=== PATIENT | female | born 1980 | race African-American/Black ===

== ENCOUNTER 2018-07-31 06:02 | Inpatient (IN) | payer OTHER ==
[~2018-07-31] VITALS: Ht 160 cm; Wt 75.3 kg
[2018-07-31 06:05] VITALS: BP 141/82
[2018-07-31 06:48] LABS: ANION GAP 22 mmol/L (7-16); BUN 11 mg/dL (7-18); CALCIUM 8.9 mg/dL (8.5-10.1); CHLORIDE 93 mmol/L (98-107); CO2 17 mmol/L (21-32); GLUCOSE 67 mg/dL (74-106); POTASSIUM 4.1 mmol/L (3.5-5.1); SODIUM 132 mmol/L (136-145)
[2018-07-31 06:57] LABS: ALBUMIN 3.9 g/dL (3.4-5.0); DIRECT BILIRUBIN 0.3 mg/dL (<0.1-0.3); LIPASE 35 U/L (73-393); SGOT 161 U/L (15-37); SGPT 134 U/L (30-65); TOTAL PROTEIN 7.6 g/dL (6.4-8.2); TROPONIN-I <0.06 ng/mL (<0.06)
[2018-07-31 07:11] LABS: URINE CLARITY CLEAR; URINE COLOR YELLOW; URINE SPECIFIC GRAVITY 1.025 (1.005-1.035)
[2018-07-31 07:12] LABS: URINE BLOOD 1+ (Negative); URINE GLUCOSE-RANDOM* NEGATIVE (Negative); URINE KETONES 3+ (Negative); URINE LEUKOCYTES-REFLEX NEGATIVE (Negative); URINE NITRITE-REFLEX NEGATIVE (Negative); URINE PROTEIN (DIPSTICK) 1+ (Negative); URINE UROBILINOGEN 0.2 E.U./dl (0.2-1.0)
[2018-07-31 07:14] LABS: ICTOTEST (BILI CONFIRMATORY) Negative (Negative); URINE BILIRUBIN NEGATIVE (Negative)
[2018-07-31 07:17] LABS: AMP/METHAMP Negative (Negative); BARBITURATES Negative (Negative); BENZODIAZEPINES Negative (Negative); COCAINE Negative (Negative); METHADONE Negative (Negative); OPIATES Negative (Negative); PCP Negative (Negative)
[2018-07-31 07:20] LABS: URINE REDUCING SUBSTANCE NEGATIVE
[2018-07-31 07:37] LABS: HEMATOCRIT 35.9 % (37.0-47.0); HEMOGLOBIN 12.4 gm/dL (12.0-15.0); MCH 30.2 pg (26.0-34.0); MCHC 34.7 g/dL (28.0-37.0); MCV 87.1 fL (80.0-100.0); PLATELET COUNT 111 thou/uL (150-400); RBC 4.12 mil/uL (4.20-5.00); RDW 14.1 % (10.5-14.5); WBC 4.4 thou/uL (4.0-11.0)
[2018-07-31 07:40] LABS: SQUAMOUS 4-10 Moderate /LPF (0-3)
[2018-07-31 07:41] LABS: CASTS None Seen /LPF (None Seen); CRYSTALS None Seen /LPF (None Seen); URINE RBC 0-2 Rare /HPF (0-2); URINE WBC-REFLEX 0-5 Rare /HPF (0-5)
[2018-07-31 07:42] LABS: BACTERIA-REFLEX 1-9 Few /HPF (None Seen)
[2018-07-31 08:21] LABS: ATYPICAL LYMPHS 4 %
--- NOTE | 2018-07-31 08:53 | EKG ---
[address] [place] [address] ELECTROCARDIOGRAM REPORT Name: ENIO DENT Room #: 170-1 ADM IN M.R.#: [id number] Admission: 07/31/18 Attend Phys: Matthew Bhatt MD Discharge: Date of : 82 Report #: [id number] THIS REPORT FOR: //name// [facility] ED Test Date: 2018-07-31 Test Time: 06:39:38 Pat Name: ENIO DENT Department: Room: 170 Gender: F Orthopedic Technician: LANI SHIELDS : 1980 Requested By: Froylan Dorsey Order Number: [id number] MD: Johan Paulino Measurements Intervals [place] Rate: 87 P: 58 [place]: 139 QRS: 23 QRSD: 101 T: 27 QT: 424 QTc: 510 Interpretive Statements Sinus rhythm ST elev, probable normal early repol pattern Prolonged QT interval No previous ECG available for comparison Electronically Signed On 07-31-2018 8:52:56 CLOTH SHRINKING TESTER by Johan Paulino [email or web address] <ELECTRONICALLY SIGNED> By: Johan Paulino MD, [facility] 07/31/18 0852 0639 8 Johan Paulino MD, FACC /EPI
[2018-07-31 13:32] VITALS: BP 127/78
[2018-07-31 14:25] VITALS: BP 128/75
[2018-07-31 14:45] VITALS: BP 128/83
[2018-07-31 19:33] VITALS: BP 123/73
[2018-08-01 00:04] VITALS: BP 108/73
[2018-08-01 03:34] VITALS: BP 112/69
--- NOTE | 2018-08-01 03:53 | NUR ---
ASSUMED PT CARE AROUND 1900. ORIENTED X4. PT ANXIOUS AND C/O SOA EARLIER IN THE SHIFT. LORAZEPAM GIVEN PER [facility] PROTOCOL. PT STATED SYMPTOMS IMPROVED. PT HAS BEEN SLEEPING MOST OF THE NIGHT. RESP EVEN AND UNLABORED. DENIES ANY HALLUCINATIONS. C/O HEADACHE AND NAUSEA. PT WAS ABLE TO TOLERATE EATING A SNACK. IVF INFUSING ORDERED. FALL PRECAUTIONS IN PLACE. PROGRESSING SLOWLY TOWARD POC GOALS. WILL CONTINUE TO MONITOR FURTHER.
[2018-08-01 04:21] LABS: CALCIUM 8.4 mg/dL (8.5-10.1); MAGNESIUM 1.3 mg/dL (1.8-2.4); POTASSIUM 4.5 mmol/L (3.5-5.1)
[2018-08-01 07:45] VITALS: BP 130/91
[2018-08-01 11:59] VITALS: BP 135/85
[2018-08-01] MEDS ORDERED: TRAZODONE 150150 M1 PO (12:20)
[2018-08-01] MEDS ORDERED: QUETIAPINE FUM100 MG PO (12:20)
--- NOTE | 2018-08-01 14:44 | NUR ---
dp sent updates to [facility], patient to dc in 1 to 2 days. dp made sure to include a face sheet in case they misplaced the last one.
--- NOTE | 2018-08-01 15:17 | NUR ---
Assumed care of patient at 0700. Vitals have been stable. Patient alert and oriented x4. CIWAs every 4 hours and treated with PO Ativan as needed. Main complaints are feeling anxious, shaky, with mild nausea and headache. States that Ativan helps these symptoms. Patient up with SBA to bathroom. Fall precautions in place and calls appropriately. IVF infusing per orders, onetime dose of Magnesium IV x2. Psych consult due to ETOH and depression. Progressing towards POC. Will continue to monitor.
[2018-08-01 16:11] VITALS: BP 105/62
[2018-08-01 19:10] VITALS: BP 114/74
[2018-08-02 03:00] VITALS: BP 119/84
[2018-08-02 07:26] VITALS: BP 120/86
--- NOTE | 2018-08-02 07:37 | NUR ---
PATIENT IS PROGRESSING IN HER CARE PLAN. VITAL SIGNS STABLE WITH PATIENT HAVING NO COMPLAINTS OF PAIN. PATIENT DID COMPLAIN OF VERY SLIGHT NAUSEA WHICH WAS TREATED EFFECTIVELY. ORIENTED THROUGHOUT SHIFT, PATIENT WAS ABLE TO CALL APPROPRIATELY FOR NEEDS. CIWA ASSESSMENT WITH MEDICATION GIVEN THROUGHOUT SHIFT WITH PATIENT SCORING HIGH FIVE. UP MULTIPLE TIMES TO BATHROOM WITH STANDBY ASSISTANCE INCIDENT FREE. CONTINUE PLAN OF CARE.
--- NOTE | 2018-08-02 10:09 | NUR ---
ASSESSMENT: CM REVIEWED CHART AND MET WITH PATIENT AT THE BEDSIDE. PT IS ALERT AND ORIENTED X4. PT WAS ADMITTED WITH ETOH KETOACIDOSIS. PT REPORTS DRINKING ABOUT 1/5 PER DAY. PT REPORTS SHE HAS BEEN FOLLOWING UP AT [facility]. PT STATES SHE IS CURRENTLY LIVING WITH HER BEST FRIEND AT HER [facility]. PT REPORTS 10 STEPS WITH HANDRAILS TO ENTER AND 14 STEPS WITH HANDRAILS TO GET TO HER BEDROOM. PT REPORTS BEING FULLY INDEPENDENT WITH ADLS AND AMBULATION. PT STATES THAT SHE GOES TO [facility] 4X/WEEK WHEN SHE IS NOT DRINKING. PT REPORTS SHE [place] AL[place] BE[place] [facility] [place] AND REPORTS SHE HAD BEEN THROUGH A RESIDENTAL PROGRAM IN THE PAST AND GOT OUT IN JUNE. PT REPORTS SHE CAN GO BACK TO LIVING AT HER FRIENDS HOUSE BUT WANTED SOME RESOURCES ON ASSISTANCE FOR HOUSING. CM PROVIDED PATIENT WITH INFO SHEET ON HOUSING ASSISTANCE WELL PROVIDED PATIETN WITH CRISIS HOTLINE NUMBERS/DETOX CENTERS/ FIND A PHYSICIAN IF SHE EVER NEEDED IT. PT REPORTS SHE DOES NOT NEED ANY FURTHER INFO ON [facility]. PSYCH IS CONSULTED AND IS TO SEE PATIENT TODAY. CM WILL CONTINUE TO FOLLOW TO ASSIST NEEDED.
[2018-08-02 11:56] VITALS: BP 110/72
[2018-08-02] MEDS ORDERED: PEPCID20 MG PO (14:06)
[2018-08-02] MEDS ORDERED: PRENATAL PO (14:06)
--- NOTE | 2018-08-02 16:03 | NUR ---
on-going assessment: CM REVIEWED CHART AND MET WITH PATIENT AT THE BEDSIDE. PSYCH HAS VISITED WITH PATIENT AND CLEARED HER FOR DISCHARGE. CM PROVIDED PATIENT WITH LIST OF RESOURCES FOR INPATIENT/OUTPATIENT ETOH RESOURCES WELL CRISIS HOTLINE NUMBERS. PATIENT REPORTS SHE IS GOING TO HER FATHERS APT AT DISCHARGE AND IS GOING TO STAY THERE. [place] [id number] [id number] [address] CM ASKED IF PATIENT COULD REACH OUT TO HIM AND SHE STATED THAT HIS PHONE IS NOT IN SERVICE AT THIS TIME. PT REPORTS SHE WILL BE SAFE BECAUSE EVEN IF HE IS NOT HOME HER CAR IS THERE AND SHE HAS HER KEYS TO HER CAR AND CAN DRIVE TO HER FRIENDS IF HE IS NOT HOME. PATIENT REPORTS NEED A RIDE HOME. SHONDA RECEIVED CAB VOUCHER FROM [employer] AND FILLED IT OUT. CM NOTIFIED BEDSIDE RN TO PROVIDE PATIENT WITH THIS VOUCHER AND SHE CAN GO DOWN TO [place] BUT THE ER HERE AND THEY WILL PAGE THE CAB. PT REPORTS NO FURTHER NEEDS FROM SHONDA.
[2018-08-02 18:14] VITALS: BP 110/72
[2018-08-02 18:23] VITALS: BP 110/72
--- NOTE | 2018-08-02 19:18 | NUR ---
ASSUMED CARE AT 0700. PT A&OX4. PT ON ROOM AIR. PT MAKES FREQUENT TRIPS TO THE BATHROOM FOR CHRONIC LOOSE BOWELS. PT STATES BOWELS HAVE BEEN LOOSE FOR OVER 1 YEAR. PT HAS SCORES 8 ON CWAL. PT WAS GIVEN 1MG LORAZEPAM FOR ANXIETY/AGITATION X2 DOSES, SEE MAR. IV'S REMOVED OUT OF L AND R ARM, REMOVED INTACT. PT GIVEN DISCHARGE INSTRUCTIONS AND PRESCRIPTIONS. EVENT DESIGNER HAD CAB VOUCHER ON CHART FOR PT AT DISCHARGE. PT GIVEN VOUCHER AND WAS TAKEN TO SECURITY BY WHEELCHAIR AND SECURITY WAS TO CALL CAB.
== END 2018-08-02 18:53 | disposition home or self-care (01) | DRG 433 ==
LOC: ER 06:02 → EROBS 08:26 → 3W 14:33 → ENTRNSPT 08-02 18:44 → 3W 08-02 18:53
PROVIDERS: Emergency Medicine; Nurse Practitioner Acute Care; ADMIT Internal Medicine
DX: K70.10 Alcoholic hepatitis without ascites (principal); E87.2 Acidosis; J45.909 Unspecified asthma, uncomplicated; F41.9 Anxiety disorder, unspecified; F17.290 Nicotine dependence, other tobacco product, uncomplicated; F31.9 Bipolar disorder, unspecified; F10.10 Alcohol abuse, uncomplicated; Z28.9 Immunization not carried out for unspecified reason; Z88.8 Allergy status to other drugs, medicaments and biological substances; Z79.899 Other long term (current) drug therapy
CPT/HCPCS: 10879

== ENCOUNTER 2018-08-08 06:59 | Emergency (ER) | payer OTHER ==
[~2018-08-08] VITALS: Ht 160 cm; Wt 56.7 kg
[~2018-08-08 06:59] MED LIST: PEPCID20 MG PO; PRENATAL PO; QUETIAPINE FUM100 MG PO; TRAZODONE 150150 M1 PO
[2018-08-08 07:35] LABS: URINE BILIRUBIN NEGATIVE (Negative); URINE BLOOD NEGATIVE (Negative); URINE CLARITY CLEAR; URINE COLOR YELLOW; URINE GLUCOSE-RANDOM* NEGATIVE (Negative); URINE KETONES 1+ (Negative); URINE LEUKOCYTES-REFLEX NEGATIVE (Negative); URINE NITRITE-REFLEX NEGATIVE (Negative); URINE PROTEIN (DIPSTICK) 1+ (Negative); URINE SPECIFIC GRAVITY >= 1.030 (1.005-1.035); URINE UROBILINOGEN 0.2 E.U./dl (0.2-1.0)
[2018-08-08 07:43] LABS: SQUAMOUS >10 Many /LPF (0-3)
[2018-08-08 07:44] LABS: MUCUS 4-6 Moderate strn/LPF (None Seen)
[2018-08-08 07:45] LABS: CRYSTALS None Seen /LPF (None Seen); HYALINE CASTS 0-3 Few /LPF (None Seen); URINE RBC 0-2 Rare /HPF (0-2); URINE WBC-REFLEX 0-5 Rare /HPF (0-5)
[2018-08-08 07:58] LABS: ABSOLUTE NEUTROPHILS 1.9 thou/uL (1.4-8.2); BASOPHILS 1.1 % (0.0-2.0); EOSINOPHILS 0.6 % (0.0-3.0); HEMATOCRIT 36.4 % (37.0-47.0); HEMOGLOBIN 12.7 gm/dL (12.0-15.0); LYMPHOCYTES 39.1 % (24.0-44.0); MCH 30.7 pg (26.0-34.0); MCHC 34.9 g/dL (28.0-37.0); MONOCYTES 7.5 % (1.0-8.0); PLATELET COUNT 256 thou/uL (150-400); POLYS 51.7 % (36.0-66.0); RBC 4.14 mil/uL (4.20-5.00); RDW 14.9 % (10.5-14.5); WBC 3.7 thou/uL (4.0-11.0)
[2018-08-08 08:10] LABS: CALCIUM 9.5 mg/dL (8.5-10.1); POTASSIUM 3.6 mmol/L (3.5-5.1)
[2018-08-08 08:16] LABS: TOTAL BILIRUBIN 0.5 mg/dL (<0.1-1.0); TOTAL PROTEIN 7.7 g/dL (6.4-8.2)
--- NOTE | 2018-08-08 08:26 | EKG ---
[place] [address] [facility] [place] [address] ELECTROCARDIOGRAM REPORT Name: ENIO DENT Room #: [facility] [place]#: [id number] Admission: 08/08/18 Attend Phys: Discharge: Date of : 82 Report #: [id number] THIS REPORT FOR: //name// [facility] ED Test Date: 2018-08-08 Test Time: 07:37:57 Pat Name: ENIO DENT Department: Room: Gender: F Dental Manager: PADMA : 1980 Requested By: Hugo Lester Order Number: [id number] MD: Cameron Lacey Measurements Intervals [place] Rate: 93 P: 76 NC: 130 QRS: 33 QRSD: 92 T: 43 QT: 390 QTc: 486 Interpretive Statements Sinus rhythm Compared to ECG 07/31/2018 06:39:38 ST (T wave) deviation no longer present Electronically Signed On 08-08-2018 8:26:12 FIRE ALARM MECHANIC by Cameron Lacey [email or web address] <ELECTRONICALLY SIGNED> By: Cameron Lacey MD 08/08/18 0826 0737 6 Cameron Lacey MD /DAT
[2018-08-08 13:34] VITALS: BP 120/76
[2018-08-08] MEDS ORDERED: CHLORDIAZEPOXID25 M1 PO (13:35)
[2018-08-08] MEDS ORDERED: ONDANSETRON HCL4 M2 PO (13:35)
== END 2018-08-08 13:38 | disposition home or self-care (01) ==
LOC: ER 06:59
PROVIDERS: Emergency Medicine
DX: F10.239 Alcohol dependence with withdrawal, unspecified (principal); Y90.9 Presence of alcohol in blood, level not specified; R11.2 Nausea with vomiting, unspecified; J45.909 Unspecified asthma, uncomplicated; F41.9 Anxiety disorder, unspecified; F31.9 Bipolar disorder, unspecified; F17.210 Nicotine dependence, cigarettes, uncomplicated; Z98.890 Other specified postprocedural states; Z88.8 Allergy status to other drugs, medicaments and biological substances; Z79.899 Other long term (current) drug therapy

== ENCOUNTER 2018-09-02 16:58 | Emergency (ER) | payer OTHER ==
[~2018-09-02] VITALS: Ht 160 cm; Wt 72.1 kg
[~2018-09-02 16:58] MED LIST changes: +CHLORDIAZEPOXID25 M1 PO; +ONDANSETRON HCL4 M2 PO
[2018-09-02 18:24] LABS: ABSOLUTE NEUTROPHILS 4.6 thou/uL (1.4-8.2); BASOPHILS 0.4 % (0.0-2.0); EOSINOPHILS 0.8 % (0.0-3.0); HEMATOCRIT 44.3 % (37.0-47.0); LYMPHOCYTES 29.5 % (24.0-44.0); MCH 29.9 pg (26.0-34.0); MCHC 33.8 g/dL (28.0-37.0); MCV 88.7 fL (80.0-100.0); PLATELET COUNT 192 thou/uL (150-400); POLYS 64.3 % (36.0-66.0); RDW 14.4 % (10.5-14.5); WBC 7.2 thou/uL (4.0-11.0)
[2018-09-02 18:37] LABS: CALCIUM 8.5 mg/dL (8.5-10.1); CREATININE 0.8 mg/dL (0.6-1.0)
[2018-09-02 18:38] LABS: POTASSIUM 4.6 mmol/L (3.5-5.1)
[2018-09-02] MEDS ORDERED: CHLORDIAZEPOXID25 M1 PO (19:23)
[2018-09-02 20:06] VITALS: BP 114/68
== END 2018-09-02 20:14 | disposition home or self-care (01) ==
LOC: ER 16:58
PROVIDERS: Emergency Medicine
DX: F10.239 Alcohol dependence with withdrawal, unspecified (principal); R56.9 Unspecified convulsions; F17.210 Nicotine dependence, cigarettes, uncomplicated; J45.909 Unspecified asthma, uncomplicated; F41.9 Anxiety disorder, unspecified; F31.9 Bipolar disorder, unspecified; Z88.8 Allergy status to other drugs, medicaments and biological substances; Z98.890 Other specified postprocedural states; Y90.0 Blood alcohol level of less than 20 mg/100 ml

== ENCOUNTER 2018-09-08 08:04 | Inpatient (IN) | payer OTHER ==
[~2018-09-08] VITALS: Ht 160 cm; Wt 70.3 kg
[2018-09-08] VITALS (7 sets, daily range): BP systolic 117–133; BP diastolic 70–82
[2018-09-08 08:33] LABS: BASOPHILS 0.7 % (0.0-2.0); EOSINOPHILS 1.4 % (0.0-3.0); HEMATOCRIT 41.3 % (37.0-47.0); HEMOGLOBIN 13.7 gm/dL (12.0-15.0); MCHC 33.2 g/dL (28.0-37.0); MCV 90.2 fL (80.0-100.0); MONOCYTES 5.5 % (1.0-8.0); PLATELET COUNT 169 thou/uL (150-400); POLYS 39.4 % (36.0-66.0); RBC 4.58 mil/uL (4.20-5.00)
[2018-09-08 08:41] LABS: ANION GAP 23 mmol/L (7-16); BUN 10 mg/dL (7-18); CALCIUM 8.7 mg/dL (8.5-10.1); CHLORIDE 96 mmol/L (98-107); CO2 13 mmol/L (21-32); GLUCOSE 56 mg/dL (74-106); POTASSIUM 4.8 mmol/L (3.5-5.1); SODIUM 132 mmol/L (136-145)
[2018-09-08 08:50] LABS: ALBUMIN 3.7 g/dL (3.4-5.0); DIRECT BILIRUBIN 0.3 mg/dL (<0.1-0.3); LIPASE 29 U/L (73-393); MAGNESIUM 1.6 mg/dL (1.8-2.4); PHOSPHORUS 2.5 mg/dL (2.5-4.9); SGOT 100 U/L (15-37); SGPT 72 U/L (30-65); TOTAL BILIRUBIN 0.8 mg/dL (<0.1-1.0); TOTAL PROTEIN 7.2 g/dL (6.4-8.2); TROPONIN-I <0.06 ng/mL (<0.06)
--- NOTE | 2018-09-08 09:16 | EKG ---
[facility] [place] [address] ELECTROCARDIOGRAM REPORT Name: ENIO DENT Room #: REG Catarina#: [id number] ������������������ Admission: 09/08/18 ������������������ Attend Phys: Discharge: ������������������ Date of : 82 Report #: [id number] ����������������������������������������������������������������� [id number] THIS REPORT FOR: //name// [facility] ED Test Date: 2018-09-08 Test Time: 08:36:46 Pat Name: ENIO DENT Department: Room: Gender: F Outdoor Power Equipment Mechanic: ezra : 1980 Requested By: Froylan Dorsey Order Number: [id number] MD: Johan Paulino Measurements Intervals [place] Rate: 95 P: 57 SC: 126 QRS: 27 QRSD: 92 T: 37 QT: 407 QTc: 512 Interpretive Statements Sinus rhythm Abnormal R-wave progression, early transition Borderline prolonged QT interval Compared to ECG 08/08/2018 07:37:57 No significant change was found Electronically Signed On 09-08-2018 9:15:47 ACCOUNT ENGINEER by Johan Paulino [email or web address] ��������������������������������������������� <ELECTRONICALLY SIGNED> ���������������������������������������� By: Johan Paulino MD, [facility] ��������������������������������������������� 09/08/18 0915 0836 5 Johan Paulino MD, FACC /EPI
--- NOTE | 2018-09-08 18:33 | NUR ---
PATIENT ADMIT TO UNIT AT 1300. A/O X4 CIW X5 AT THIS TIME. ON SEIZURE PROCUATION. UP STB. WILL KEEP MONITOR.
[2018-09-09 03:56] LABS: CALCIUM 8.5 mg/dL (8.5-10.1); MAGNESIUM 1.5 mg/dL (1.8-2.4); POTASSIUM 4.1 mmol/L (3.5-5.1)
[2018-09-09 04:45] VITALS: BP 119/80
[2018-09-09 07:43] VITALS: BP 120/86
--- NOTE | 2018-09-09 08:37 | NUR ---
PT MAKING PROGRESS TOWARDS GOALS. NO REPORTED SOA, ON ROOM AIR OVER NIGHT. LUNGS CLEAR, DIMINISHED IN BOTH BASES. SEE CIWA SCORES. ATIVAN GIVEN PER ORDERS/ETOH W/OD PROTOCOL.
[2018-09-09 11:40] VITALS: BP 115/84
--- NOTE | 2018-09-09 14:30 | NUR ---
ASSUMED PATIENT CARE AT 0715. A&OX4. CIWA, SEE CHARTING. UP ADLIB. STEADY. NO N/V. TAKING PO ATIVAN. SLEEPING MOST OF THE DAY. PATIENT STATES THEY HAVE A PLAN TO GO TO INPATIENT REHAB ON TUESDAY. PROGRESSING TOWARDS GOALS.
[2018-09-09 16:28] VITALS: BP 103/69
[2018-09-09 20:06] VITALS: BP 118/82
[2018-09-10 04:58] VITALS: BP 121/82
[2018-09-10 05:09] LABS: CALCIUM 8.6 mg/dL (8.5-10.1); CREATININE 0.9 mg/dL (0.6-1.0); MAGNESIUM 1.6 mg/dL (1.8-2.4); PHOSPHORUS 1.6 mg/dL (2.5-4.9); POTASSIUM 4.1 mmol/L (3.5-5.1)
--- NOTE | 2018-09-10 05:24 | NUR ---
PT AMBULATING TO BATHROOM INDEPENDENTLY AND IS TOLERATING WELL. DENIES NEED FOR PAIN MEDICATION. ATIVAN GIVEN FOR ANXIETY. TOOK SHOWER INDEPENDENTLY. RESTING COMFORTABLY. NO NEEDS VOICED. CALL LIGHT WITHIN REACH. WILL CONTINUE TO PROVIDE FREQUENT OBSERVATION.
[2018-09-10 07:53] VITALS: BP 117/74
[2018-09-10 16:32] VITALS: BP 111/75
--- NOTE | 2018-09-10 18:07 | NUR ---
ASSUMED PATIENT CARE AT 0700. A/O X4. CIW X2. UP AD SON. PROGRESSING TOWARDS POC GOALS,
[2018-09-10 19:21] VITALS: BP 109/72
[2018-09-11 04:06] VITALS: BP 120/62
[2018-09-11 08:00] VITALS: BP 129/86
--- NOTE | 2018-09-11 08:23 | NUR ---
PT AMBULATING INDEPENDENTLY AND IS TOLERATING WELL. DENIES PAIN. PLAN FOR DC TO TREATMENT CENTER 09/11. RESTING COMFORTABLY. NO NEEDS VOICED. CALL LIGHT WITHIN REACH. WILL CONTINUE TO PROVIDE FREQUENT OBSERVATION.
--- NOTE | 2018-09-11 09:27 | NUR ---
ASSESSMENT: CM REVIEWED CHART AND MET WITH PATIENT AT THE BEDSIDE. PT IS ALERT AND ORIENTED X4. PT WAS ADMITTED FOR ETOH WITHDRAWAL. PT REPORTS SHE LIVES IN AN APT ALONE AND IS INDEPENDENT WITH ADLS AND AMBULATION. PT REPORTS SHE GOES TO A FEW TIMES A WEEKEND AND HAS BEEN IN A COUPLE OF RESIDENTAL PROGRAMS. CM DISCUSSED ROLE AND IF PATIENT WAS INTERESTED IN INPATIENT REHAB. PT REPORTS SHE ACUTALLY HAS A EDUCATIONAL ADMINISTRATOR WHO HAS ARRANGED FOR HER TO GO TO [facility] TODAY AND WILL PROVIDE TRANSPORTATION FOR HER. PATIENT CURRENTLY SHOWS PATIENT PAY AND ASKED PATIENT IF SHE HAD INSURANCE AND SHE STATES SHE HAS [employer] ([place] MEDICAID) BUT DID NOT HAVE HER CARD ON HER. CM NOTIFIED PRE-CERT DEPT AND LEFT VM WITH DW. PT REPORTS HAVING NO NEEDS FROM AT THIS TIME.
[2018-09-11] MEDS ORDERED: PRENATAL PO (12:03)
[2018-09-11] MEDS ORDERED: GABAPENTIN 100100 MG PO (12:03)
[2018-09-11] MEDS ORDERED: PEPCID20 MG PO (12:03)
[2018-09-11] MEDS ORDERED: VITAMIN B-1100 M2 PO (12:03)
[2018-09-11 12:12] VITALS: BP 129/86
--- NOTE | 2018-09-11 12:32 | NUR ---
PATIENT ALERT AND ORIENTED X4, ON ROOM AIR. TOLERATING REGULAR DIET. UP INDEPENDENTLY, NO IV'S PRESENT. PATIENT GIVEN DISCHARGE PRESCRIPTIONS AND INSTRUCTIONS, VERBALIZED UNDERSTANDING. NO SIGNS OF ACUTE DISTRESS NOTED AT THIS TIME. ASSISTED BY STAFF TO RIDE HOME.
== END 2018-09-11 12:40 | disposition home or self-care (01) | DRG 101 ==
LOC: ER 08:04 → EROBS 10:24 → 3W 10:24 → ENTRNSPT 09-11 12:32 → EDTRNSPTSTS 09-11 12:35 → 3W 09-11 12:40
PROVIDERS: Emergency Medicine; Nurse Practitioner; ADMIT Internal Medicine
DX: G40.89 Other seizures (principal); F10.239 Alcohol dependence with withdrawal, unspecified; E87.2 Acidosis; F41.9 Anxiety disorder, unspecified; E16.2 Hypoglycemia, unspecified; J45.909 Unspecified asthma, uncomplicated; Y90.9 Presence of alcohol in blood, level not specified; F17.290 Nicotine dependence, other tobacco product, uncomplicated; F31.9 Bipolar disorder, unspecified; Z98.891 History of uterine scar from previous surgery; Z88.8 Allergy status to other drugs, medicaments and biological substances
CPT/HCPCS: 10879

== ENCOUNTER 2018-10-21 18:06 | Emergency (ER) | payer OTHER ==
[~2018-10-21] VITALS: Ht 160 cm; Wt 66.2 kg
[~2018-10-21 18:06] MED LIST changes: +GABAPENTIN 100100 MG PO; +VITAMIN B-1100 M2 PO
[2018-10-21 18:43] LABS: ABSOLUTE NEUTROPHILS 2.9 thou/uL (1.4-8.2); BASOPHILS 0.5 % (0.0-2.0); EOSINOPHILS 3.2 % (0.0-3.0); HEMOGLOBIN 12.8 gm/dL (12.0-15.0); LYMPHOCYTES 29.4 % (24.0-44.0); MCH 30.7 pg (26.0-34.0); MCHC 33.8 g/dL (28.0-37.0); MCV 91.1 fL (80.0-100.0); MONOCYTES 2.9 % (1.0-8.0); RBC 4.18 mil/uL (4.20-5.00); WBC 4.6 thou/uL (4.0-11.0)
[2018-10-21 18:46] LABS: URINE BLOOD NEGATIVE (Negative); URINE CLARITY CLEAR; URINE COLOR YELLOW; URINE GLUCOSE-RANDOM* NEGATIVE (Negative); URINE KETONES 3+ (Negative); URINE LEUKOCYTES-REFLEX NEGATIVE (Negative); URINE NITRITE-REFLEX NEGATIVE (Negative); URINE PROTEIN (DIPSTICK) 1+ (Negative); URINE UROBILINOGEN 0.2 E.U./dl (0.2-1.0)
[2018-10-21 18:49] LABS: ANION GAP 18 mmol/L (7-16); BUN 11 mg/dL (7-18); CALCIUM 9.1 mg/dL (8.5-10.1); CHLORIDE 96 mmol/L (98-107); CO2 22 mmol/L (21-32); CREATININE 0.9 mg/dL (0.6-1.0); GLUCOSE 74 mg/dL (74-106); POTASSIUM 3.7 mmol/L (3.5-5.1); SODIUM 136 mmol/L (136-145)
[2018-10-21 18:57] LABS: ICTOTEST (BILI CONFIRMATORY) Negative (Negative); URINE BILIRUBIN NEGATIVE (Negative); URINE REDUCING SUBSTANCE NEGATIVE
[2018-10-21 19:00] LABS: ALBUMIN 3.9 g/dL (3.4-5.0); MAGNESIUM 1.3 mg/dL (1.8-2.4); SALICYLATE 4.5 mg/dL (2.8-20.0); SGOT 149 U/L (15-37); SGPT 68 U/L (30-65); TOTAL BILIRUBIN 1.9 mg/dL (<0.1-1.0); TOTAL PROTEIN 7.2 g/dL (6.4-8.2); TROPONIN-I <0.06 ng/mL (<0.06)
[2018-10-21 19:01] LABS: AMP/METHAMP Negative (Negative); BARBITURATES Negative (Negative); BENZODIAZEPINES POSITIVE (Negative); COCAINE Negative (Negative); METHADONE Negative (Negative); OPIATES Negative (Negative); PCP Negative (Negative)
[2018-10-21 19:14] LABS: PLATELET COUNT 92 thou/uL (150-400)
[2018-10-21] MEDS ORDERED: ATIVAN2 MG PO (21:33)
[2018-10-21] MEDS ORDERED: ONDANSETRON ODT8 MG PO (21:33)
[2018-10-21] MEDS ORDERED: PRILOSEC 20 MG20 MG PO (21:47)
[2018-10-21 22:56] VITALS: BP 128/91
--- NOTE | 2018-10-22 10:35 | EKG ---
[place] [address] [email or web address] [address] ELECTROCARDIOGRAM REPORT Name: ENIO DENT [id number] ������������������ Admission: 10/21/18 ������������������ Attend Phys: Discharge: 10/21/18 ������������������ Date of : 82 Report #: [id number] ����������������������������������������������������������������� [id number] THIS REPORT FOR: //name// [facility] ED Test Date: 2018-10-21 Test Time: 18:22:29 Pat Name: ENIO DENT Department: Room: Gender: F Hospital Laboratory Technician: WG : 1980 Requested By: Regis Duran Order Number: [id number] MD: Rico Chavez Measurements Intervals [place] Rate: 93 P: 79 [place]: 134 QRS: 10 QRSD: 90 T: 28 QT: 417 QTc: 519 Interpretive Statements Sinus rhythm Low voltage, precordial leads Abnormal R-wave progression, early transition Prolonged QT interval Compared to ECG 09/08/2018 08:36:46 Low QRS voltage now present Electronically Signed On 10-22-2018 10:35:21 CDT by Rico Chavez [email or web address] ��������������������������������������������� <ELECTRONICALLY SIGNED> ���������������������������������������� By: Rico Chavez MD ��������������������������������������������� 10/22/18 1035 D: 04/1821 21 Rico Chavez MD /DAT
== END 2018-10-21 22:57 | disposition home or self-care (01) ==
LOC: ER 18:06
PROVIDERS: Emergency Medicine
DX: F10.239 Alcohol dependence with withdrawal, unspecified (principal); E86.0 Dehydration; D69.6 Thrombocytopenia, unspecified; R79.89 Other specified abnormal findings of blood chemistry; J45.909 Unspecified asthma, uncomplicated; F17.210 Nicotine dependence, cigarettes, uncomplicated; Y90.0 Blood alcohol level of less than 20 mg/100 ml; Z88.8 Allergy status to other drugs, medicaments and biological substances